=== PATIENT | male | born 2000 | race Caucasian/White ===

== ENCOUNTER 2019-09-23 09:44 | Inpatient (IN) | payer BC, SELFPAY ==
[~2019-09-23 09:44] MED LIST: Iopamidol-370 76% 500 ML 1 ML ONE
[2019-09-23] MEDS ORDERED: Morphine 4 MG/ML VIAL ONE (09:57)
[2019-09-23] MEDS ORDERED: Adacel (T-DAP) 0.5 ML SYRINGE ONE (09:57)
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
[2019-09-23 10:20] LABS: #Basophils 0.1 thou/uL (0.0-0.2); #Eosinphils 0.1 thou/uL (0.0-0.7); #Lymphocytes 2.4 thou/uL (1.20-3.40); #Monocytes 0.7 thou/uL (0.11-0.59); #Neutrophils 14.1 thou/uL (1.40-6.50); %Basophils 0.4 % (0.0-1.0); %Eosinophils 0.5 % (0.0-10.0); %Lymphocytes 13.6 % (21.0-51.0); %Neutrophils 81.5 % (42.0-75.0); Hemoglobin 15.1 g/dL (14.0-18.0); Mean Corpuscular Hemoglobin 30.2 pg (27.0-31.0); Mean Corpuscular Volume 88.8 fL (78.0-98.0); Mean Platelet Volume 7.8 fL (7.4-10.4); Platelet Count 306 thou/uL (130-400); RBC Distribution Width 11.4 % (11.5-14.5); Red Blood Cell (RBC) Count 5.02 mill/uL (4.70-6.10); White Blood Cell (WBC) Count 17.3 thou/uL (4.8-10.8)
[2019-09-23] MEDS ORDERED: Glycopyrrolate 0.2 MG/ML 5 ML SYRINGE ONE (10:24)
[2019-09-23] MEDS ORDERED: Metoclopramide HCl 10 MG/2 ML VIAL ONE (10:24)
[2019-09-23] MEDS ORDERED: Ondansetron PF 4 MG/2 ML Vial ONE (10:24)
[2019-09-23] MEDS ORDERED: Rocuronium Bromide 10 MG/ML (10ML VIAL) ONE (10:24)
[2019-09-23] MEDS ORDERED: PROPOFOL 200 MG/20 ML VIAL ONE (10:24)
[2019-09-23] MEDS ORDERED: Lidocaine 1% PF 5 ML VIAL ONE (10:24)
[2019-09-23] MEDS ORDERED: PHENYLEPHRINE-NS 100 MCG/ML 10 ML SYRINGE ONE (10:24)
[2019-09-23] MEDS ORDERED: Ketorolac Tromethamine 30 MG/ML VIAL ONE (10:24)
[2019-09-23] MEDS ORDERED: Dexamethasone 20 MG/5 ML VIAL ONE (10:24)
[2019-09-23] MEDS ORDERED: Succinylcholine Chloride 20 MG/ML 10 ml SYRINGE FS ONE (10:24)
[2019-09-23 10:26] LABS: PTT 23.9 SEC (22.9-36.1); Prothrombin Time 13.1 SEC (12.0-14.7)
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
[2019-09-23 10:41] LABS: ALT (SGPT) 47 U/L (8-55); AST (SGOT) 29 U/L (5-34); Albumin 4.4 g/dL (3.5-5.0); Alkaline Phosphatase 68 U/L (40-110); Anion Gap 14 mmol/L (10-20); BUN (Urea Nitrogen) 10 mg/dL (8.9-20.6); Bilirubin, Total 0.5 mg/dL (0.2-1.2); Calc. Creatinine Clearance 0 mL/min (70-130); Calcium 8.9 mg/dL (7.8-10.44); Carbon Dioxide 21 mmol/L (22-29); Chloride 107 mmol/L (98-107); Estimated GFR-MDRD Greater than 90; Globulin 2.5 g/dL (2.4-3.5); Glucose 206 mg/dL (70-105); Potassium 3.8 mmol/L (3.5-5.1); Protein, Total 6.9 g/dL (6.0-8.3); Sodium 138 mmol/L (136-145)
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
[2019-09-23] MEDS ORDERED: CEFAZOLIN 1 GM VIAL ONE (11:17)
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
[2019-09-23] MEDS ORDERED: Dextrose 5% in Water 1,000 ML IV PRN (11:49)
[2019-09-23] MEDS ORDERED: Morphine 4 MG/ML VIAL SLOW IVP PRN (11:49)
[2019-09-23] MEDS ORDERED: Ondansetron PF 4 MG/2 ML Vial IVP PRN (11:49)
[2019-09-23] MEDS ORDERED: Dextrose 50% Abboject 50 ML SYRINGE SLOW IVP PRN (11:49)
[2019-09-23] MEDS ORDERED: hydrALAZINE 20 MG/ML VIAL SLOW IVP PRN (11:49)
[2019-09-23] MEDS ORDERED: Cyclobenzaprine 10 MG TAB PO PRN (11:52)
[2019-09-23] MEDS ORDERED: traMADol HCl 50 MG TAB PO PRN ×2 (11:52)
[2019-09-23] MEDS ORDERED: Sodium Chloride 0.9% 1,000 ML IV SCH (12:00)
[2019-09-23] MEDS ORDERED: Fentanyl 100 MCG/2 ML VIAL ONE ×2 (12:40→15:11)
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
[2019-09-23] MEDS ORDERED: Promethazine HCl 25 MG/ML VIAL SLOW IVP PRN (14:18)
[2019-09-23] MEDS ORDERED: Meperidine HCl/PF 25 MG/ML VIAL SLOW IVP PRN (14:18)
[2019-09-23] MEDS ORDERED: Promethazine HCl 25 MG/ML VIAL IM PRN (14:18)
[2019-09-23] MEDS ORDERED: HYDROmorphone 2 MG/ML VIAL SLOW IVP PRN (14:18)
--- NOTE | 2019-09-23 16:11 | RAD ---
Exam:Intraoperative fluoroscopy HISTORY: Comminuted left hip fracture COMPARISON: 09/23/2019 Exposure: 42.8 seconds, 35.50 mg FINDINGS: 7 fluoroscopic images demonstrate interval placement of a intramedullary linh with a single distal and 2 proximal interlocking screws. Near anatomic alignment. Fracture fragments are identified. IMPRESSION: Fluoroscopy as above.
[2019-09-23] MEDS ORDERED: Lactated Ringer's 1,000 ML IV SCH (16:15)
[2019-09-23 16:33] VITALS: BMI 29.2
[2019-09-23] MEDS: Acetaminophen 500 MG TAB PO SCH ×2 (16:40→18:09)
[2019-09-23] MEDS: Ibuprofen 600 MG TAB PO SCH ×2 (16:40→20:18)
[2019-09-23] MEDS: Lactated Ringer's 1,000 ML IV SCH (18:04)
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
[2019-09-23 19:18] LABS: Amphetamine Not Detected (NotDetected); Barbiturates Screen Not Detected (NotDetected); Benzodiazepine Screen Not Detected (NotDetected); Cocaine Metabolite Screen Not Detected (NotDetected); Medtox Control Line Valid? VALID (VALID); Medtox Reader # READER 4; Methadone Not Detected (NotDetected); Methamphetamine Not Detected (NotDetected); Opiate Screen Detected (NotDetected); Oxycodone Screen Not Detected (NotDetected); Phencyclidine (PCP) Not Detected (NotDetected); THC/Cannabinoid Screen Not Detected (NotDetected); Tricyclic Screen Not Detected (NotDetected)
[2019-09-23] MEDS: Famotidine/PF 20 mg/2ml Vial SLOW IVP SCH (20:18)
[2019-09-23] MEDS: Senokot S 8.6-50 MG TAB PO SCH (20:41)
[2019-09-23] MEDS: CEFAZOLIN 2 GM in Premix Bag 1 BAG IVPB SCH (21:17)
[2019-09-23] MEDS ORDERED: Ibuprofen 600 MG TAB PO PRN (22:25)
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
[2019-09-24] MEDS: Acetaminophen 500 MG TAB PO SCH ×3 (00:48→14:10)
[2019-09-24] MEDS: Lactated Ringer's 1,000 ML IV SCH (00:51)
[2019-09-24 05:38] LABS: Lactic Acid 1.5 mmol/L (0.5-2.2)
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
[2019-09-24 05:41] LABS: Anion Gap 11 mmol/L (10-20); BUN (Urea Nitrogen) 6 mg/dL (8.9-20.6); Calc. Creatinine Clearance 169 mL/min (70-130); Calcium 8.4 mg/dL (7.8-10.44); Carbon Dioxide 26 mmol/L (22-29); Chloride 104 mmol/L (98-107); Estimated GFR-MDRD Greater than 90; Glucose 121 mg/dL (70-105); Magnesium 1.6 mg/dL (1.6-2.6); Phosphorus 3.8 mg/dL (2.3-4.7); Potassium 4.1 mmol/L (3.5-5.1); Sodium 137 mmol/L (136-145)
[2019-09-24 06:07] LABS: #Basophils 0.1 thou/uL (0.0-0.2); #Lymphocytes 0.9 thou/uL (1.20-3.40); #Monocytes 0.7 thou/uL (0.11-0.59); #Neutrophils 5.6 thou/uL (1.40-6.50); %Basophils 0.8 % (0.0-1.0); %Eosinophils 0.2 % (0.0-10.0); %Lymphocytes 13.1 % (21.0-51.0); %Monocytes 9.2 % (0.0-10.0); %Neutrophils 76.8 % (42.0-75.0); Hemoglobin 10.8 g/dL (14.0-18.0); Mean Corpuscular HGB CONC 34.8 g/dL (32.0-36.0); Mean Corpuscular Hemoglobin 30.5 pg (27.0-31.0); Mean Corpuscular Volume 87.8 fL (78.0-98.0); Mean Platelet Volume 7.5 fL (7.4-10.4); Platelet Count 215 thou/uL (130-400); RBC Distribution Width 11.2 % (11.5-14.5); Red Blood Cell (RBC) Count 3.53 mill/uL (4.70-6.10); White Blood Cell (WBC) Count 7.2 thou/uL (4.8-10.8)
[2019-09-24] MEDS: CEFAZOLIN 2 GM in Premix Bag 1 BAG IVPB SCH (06:14)
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
[2019-09-24] MEDS ORDERED: Magnesium 2 GM/50 ML 2 GM in Premix Bag 1 BAG IVPB SCH (07:45)
[2019-09-24] MEDS ORDERED: Aripiprazole 2 MG TAB PO SCH ×2 (09:00)
[2019-09-24] MEDS ORDERED: Non-Formulary Item 1 EACH (Desvenlafaxine Succinate [Pristiq] 100 MG) PO SCH (09:00)
[2019-09-24] MEDS ORDERED: Venlafaxine HCl XR 150 MG CAP PO SCH (09:00)
[2019-09-24] MEDS ORDERED: Polyethylene Glycol 3350 17 GM Packet PO SCH (09:00)
[2019-09-24] MEDS: Famotidine/PF 20 mg/2ml Vial SLOW IVP SCH (09:36)
[2019-09-24] MEDS: Senokot S 8.6-50 MG TAB PO SCH (09:48)
[2019-09-24 11:30] VITALS: BP 107/69; TEMP 97.8
[2019-09-24] MEDS ORDERED: Enoxaparin Sodium 30 MG/0.3 ML SYRINGE SC SCH (21:00)
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
== END 2019-09-24 14:25 | disposition home or self-care (01) | DRG 482 ==
LOC: ERS 09:44 → SDC 12:15 → SURG A 12:15
PROVIDERS: ADMIT Surgery; ATTEND Surgery
PROC: 0QS906Z Reposition Left Femoral Shaft with Intramedullary Internal Fixation Device, Open Approach (ICD-10-PCS; principal; 2019-09-24)
DX: S72.352A Displaced comminuted fracture of shaft of left femur, initial encounter for closed fracture (principal); F41.9 Anxiety disorder, unspecified; R00.0 Tachycardia, unspecified; F32.9 Major depressive disorder, single episode, unspecified; V89.2XXA Person injured in unspecified motor-vehicle accident, traffic, initial encounter; W22.11XA Striking against or struck by driver side automobile airbag, initial encounter; Y92.488 Other paved roadways as the place of occurrence of the external cause
CPT/HCPCS: 36415; 70450; 71045; 71260; 72125; 74177; 76000; 80048; 80053; 80306; 80307; 83605; 83735; 84100; 85025; 85610; 85730; 86850; 86900; 86901; 90715; C1713; C1769; G0390; J0690; J1100; J1885; J2001; J2270; J2405; J2704; J2765; J3010; J3475; Q9967; S0028